=== PATIENT | female | born 1980 | race African-American/Black ===

== ENCOUNTER 2019-06-18 16:50 | Emergency (ER) | payer OTHER ==
[~2019-06-18] VITALS: Ht 167.6 cm; Wt 62.6 kg
--- NOTE | 2019-06-18 18:00 | NUR ---
Patient to ER bed 5 to gown for evaluation. Side rails up.
--- NOTE | 2019-06-18 18:10 | NUR ---
Pt presenst to ED c/o general weakness.Pt is homeless and reports having auditory hallucinations.Pt h/o Brain CA and COPD.
--- NOTE | 2019-06-18 18:20 | NUR ---
ER Monica Hinojosa at bedside examining patient.
[2019-06-18 18:31] LABS: BASOPHILS % (AUTO) 0.6 % (0.0-2.0); EOSINOPHILS # (AUTO) 0.2 K/uL (0.0-0.4); EOSINOPHILS % (AUTO) 2.2 % (0.0-4.0); HEMATOCRIT 25.9 % (36-48); HEMOGLOBIN 7.7 g/dL (12.0-16.0); LYMPHOCYTES # (AUTO) 2.7 K/uL (1.0-5.5); LYMPHOCYTES % (AUTO) 33.6 % (20.5-51.5); MEAN CORPUSCULAR HEMOGLOBIN 17 pg (27-31); MEAN CORPUSCULAR HGB CONC 30 % (32-36); MEAN CORPUSCULAR VOLUME 56 fL (79.0-98.0); MONOCYTES # (AUTO) 0.8 K/uL (0.0-1.0); MONOCYTES % (AUTO) 10.3 % (1.7-9.3); NEUTROPHILS # (AUTO) 4.3 K/uL (1.8-7.7); NEUTROPHILS % (AUTO) 53.3 % (40.0-70.0); PLATELET COUNT (AUTO) 196 K/uL (130-430); RED BLOOD CELL COUNT(AUTO) 4.61 MIL/uL (4.2-6.2); RED CELL DISTRIBUTION WIDTH 20.8 % (9.0-15.0); WHITE BLOOD COUNT (AUTO) 8.1 K/uL (4.8-10.8)
[2019-06-18 18:51] LABS: ANION GAP 4 (5-15); CALCIUM 8.3 mg/dL (8.4-11.0); CHLORIDE 105 mmol/L (98-107); GLUCOSE 84 mg/dL (70-99); POTASSIUM 3.4 mmol/L (3.5-5.1); SODIUM SERUM 139 mmol/L (136-145); UREA NITROGEN, BLOOD 9 mg/dL (8-21)
[2019-06-18 18:55] LABS: GFR AFRICAN AMERICAN 120 mL/min (>90)
[2019-06-18 18:58] LABS: ALANINE AMINOTRANSFERASE 28 U/L (12-78); ASPARTATE AMINOTRANSFERASE 35 U/L (10-37); TOTAL BILIRUBIN 0.2 mg/dL (0.0-1.0)
[2019-06-18 19:03] LABS: ACETAMINOPHEN < 1 ug/mL (1-30); ALCOHOL, BLOOD < 3 mg/dL (<10)
--- NOTE | 2019-06-18 19:55 | NUR ---
Asked patient to provide urine sample. Pt states she is unable to urinate at the moment. Pt also asked for some food and drinks. Patient was given cranberry juice. Called for meal tray.
[2019-06-18 20:18] LABS: FREE T4 (FREE THYROXINE) 0.8 ng/dl (0.8-1.5); THYROID STIMULATING HORMONE 0.6 uIu/mL (0.36-3.74)
--- NOTE | 2019-06-18 21:00 | NUR ---
Patient sleeping comfortably in bed. No acute distress, will continue to monitor.
--- NOTE | 2019-06-18 22:02 | NUR ---
Pt is resting comfortably in bed, no acute distress noted at this time. Will continue to monitor.
--- NOTE | 2019-06-18 23:17 | NUR ---
Pt is sleeping in bed, will continue to monitor.
--- NOTE | 2019-06-19 01:45 | NUR ---
Pt continues to sleep in bed, no acute distres noted at this time. No behaviors that indicate possible self harm. Will continue to monitor.
--- NOTE | 2019-06-19 02:15 | NUR ---
Pt is resting quietly in bed. Will continue to monitor.
--- NOTE | 2019-06-19 03:30 | NUR ---
Pt is resting in bed, no acute distress noted at this time. Will continue to monitor.
--- NOTE | 2019-06-19 04:45 | NUR ---
Pt sleeping in bed, no acute distress noted at this time. Will continue to monitor.
[2019-06-19 06:00] VITALS: BP_SYST 110
--- NOTE | 2019-06-19 06:00 | NUR ---
Pt became increasingly agitated after second blood draw. Pt refused and removed the touriquet and bagen packing her belongings. Pt was redirected back to her room with no effect. Dr. Miller and verse writer attempted to speak with pt but refused. States "where I'm going in none of your business, I'm leaving". Pt was A&Ox4 and walked out of ER with steady gait. Refused to sign AMA
--- NOTE | 2019-06-19 06:16 | NUR ---
[facility] notified of situation. Gave demographic information and description to Jeovany over the phone. Stated he will let the deputies in the area know.
--- NOTE | 2019-06-19 06:29 | NUR ---
Pt returned to the hospital an took a seat in the waiting room. She stated, "i am waiting for the bus." Pt was asked if she wanted assistance with placement into a homeless long-term. Pt refused asisstance. Pt was offered a breakfast tray. Pt refused and stated "I am leaving as soon as the first bus arrives."
== END 2019-06-19 06:00 | disposition left against medical advice (07) ==
LOC: SED 16:50
DX: R53.1 Weakness (principal); E11.649 Type 2 diabetes mellitus with hypoglycemia without coma; Z88.0 Allergy status to penicillin; Z88.2 Allergy status to sulfonamides
CPT/HCPCS: 36415; 80053; 84439; 84443; 84703; 85025; 99283; G0480; G0481; G0482

== ENCOUNTER 2019-06-19 07:50 | Emergency (ER) | payer OTHER ==
[~2019-06-19] VITALS: Ht 167.6 cm; Wt 61.2 kg
[2019-06-19 08:10] VITALS: BP_SYST 97
[2019-06-19 08:35] LABS: BASOPHILS # (AUTO) 0.1 K/uL (0.0-0.2); BASOPHILS % (AUTO) 2.4 % (0.0-2.0); EOSINOPHILS # (AUTO) 0.1 K/uL (0.0-0.4); EOSINOPHILS % (AUTO) 1.7 % (0.0-4.0); HEMATOCRIT 35.1 % (36-48); HEMOGLOBIN 10.3 g/dL (12.0-16.0); LYMPHOCYTES % (AUTO) 34.5 % (20.5-51.5); MEAN CORPUSCULAR HEMOGLOBIN 17 pg (27-31); MEAN CORPUSCULAR HGB CONC 29 % (32-36); MEAN CORPUSCULAR VOLUME 57 fL (79.0-98.0); MONOCYTES # (AUTO) 0.5 K/uL (0.0-1.0); MONOCYTES % (AUTO) 7.8 % (1.7-9.3); NEUTROPHILS # (AUTO) 3.2 K/uL (1.8-7.7); NEUTROPHILS % (AUTO) 53.6 % (40.0-70.0); PLATELET COUNT (AUTO) 226 K/uL (130-430); RED BLOOD CELL COUNT(AUTO) 6.12 MIL/uL (4.2-6.2); RED CELL DISTRIBUTION WIDTH 21.2 % (9.0-15.0)
[2019-06-19 08:50] LABS: ANION GAP 10 (5-15); CALCIUM 8.3 mg/dL (8.4-11.0); CHLORIDE 104 mmol/L (98-107); CREATININE 0.84 mg/dL (0.55-1.30); GLUCOSE 94 mg/dL (70-99); POTASSIUM 3.4 mmol/L (3.5-5.1); SODIUM SERUM 137 mmol/L (136-145); UREA NITROGEN, BLOOD 6 mg/dL (8-21); WHITE BLOOD COUNT (AUTO) 5.9 K/uL (4.8-10.8)
[2019-06-19 08:54] LABS: ACETONE, SERUM NEGATIVE (NEGATIVE)
[2019-06-19 08:55] LABS: ALANINE AMINOTRANSFERASE 34 U/L (12-78); ALBUMIN 3.5 g/dL (3.4-4.8); ASPARTATE AMINOTRANSFERASE 38 U/L (10-37); TOTAL BILIRUBIN 0.2 mg/dL (0.0-1.0)
== END 2019-06-19 10:46 | disposition left against medical advice (07) ==
LOC: SED 07:50
DX: R53.1 Weakness (principal)
CPT/HCPCS: 36415; 80053; 82009-TC; 85025; 99283